=== PATIENT | male | born 1965 | race Caucasian/White ===

== ENCOUNTER 2016-11-20 17:45 | Inpatient (IN) | payer OTHER ==
[~2016-11-20] VITALS: Ht 177.8 cm; Wt 115.8 kg
[~2016-11-20 17:45] MED LIST: AUGMENTIN 875875 MG PO; IBU800 MG PO; MOTRIN800 MG PO; NEURONTIN100 MG PO; NEXIUM20 MG PO; WELLBUTRIN SR150 MG PO
[2016-11-20 17:56] VITALS: BP 125/80
[2016-11-20] MEDS ORDERED: DEXILANT60 M1 PO (17:57)
[2016-11-20] MEDS ORDERED: VITAMIN D5000 UNI1 PO (17:57)
[2016-11-20 18:27] LABS: BASO % 0.2 % (0.0-1.0); EOS # 0.1 10*3/uL (0.0-0.4); EOS % 0.3 % (1.0-4.0); HEMATOCRIT 45.3 % (42.0-52.0); IG # 0.1 10*3/uL (0.0-0.1); LYMPH # 1.7 10*3/uL (1.3-4.4); LYMPH % 8.6 % (27.0-41.0); MEAN CELL VOLUME 87.3 fl (80.0-94.0); MEAN CORPUSCULAR HGB 30.8 pg (27.0-31.0); MEAN CORPUSCULAR HGB CONC 35.3 g/dl (33.0-37.0); MEAN PLATELET VOLUME 9.1 fl (9.6-12.3); MONO # 1.4 10*3/uL (0.1-1.0); MONO % 7.2 % (3.0-9.0); PLATELET COUNT AUTOMATED 350 10*3/uL (130-400); RED BLOOD COUNT 5.19 10*6/uL (4.50-5.90); RED CELL DISTRI WIDTH 12.6 % (0-14.5); WHITE BLOOD COUNT 19.2 10*3/uL (4.8-10.8)
[2016-11-20 18:39] LABS: POTASSIUM 3.8 mmol/L (3.5-5.1)
[2016-11-20 21:20] VITALS: BP 157/92
[2016-11-21] VITALS: BP 111/48
[2016-11-21] MEDS ORDERED: LIVALO2 M1 PO (02:56)
[2016-11-21 06:26] LABS: BASO % 0.4 % (0.0-1.0); EOS # 0.2 10*3/uL (0.0-0.4); EOS % 2.1 % (1.0-4.0); HEMATOCRIT 41.2 % (42.0-52.0); HEMOGLOBIN 14.2 g/dl (14.0-18.0); IG # 0.1 10*3/uL (0.0-0.1); LYMPH # 2.6 10*3/uL (1.3-4.4); LYMPH % 30.6 % (27.0-41.0); MEAN CORPUSCULAR HGB 31.1 pg (27.0-31.0); MEAN CORPUSCULAR HGB CONC 34.5 g/dl (33.0-37.0); MEAN PLATELET VOLUME 9.1 fl (9.6-12.3); MONO % 11.8 % (3.0-9.0); NEUT # 4.7 10*3/uL (2.3-7.9); NEUT % 54.4 % (47.0-73.0); PLATELET COUNT AUTOMATED 300 10*3/uL (130-400); RED BLOOD COUNT 4.56 10*6/uL (4.50-5.90); RED CELL DISTRI WIDTH 13.1 % (0-14.5); WHITE BLOOD COUNT 8.5 10*3/uL (4.8-10.8)
[2016-11-21 06:32] LABS: MEAN CELL VOLUME 90.4 fl (80.0-94.0)
[2016-11-21 06:51] LABS: INTERNATIONAL NORM RATIO 0.9 (2.0-3.5)
[2016-11-21 07:02] LABS: ALBUMIN 3.4 gm/dl (3.1-4.5); BILIRUBIN, TOTAL 0.5 mg/dl (0.2-1.0); BUN 19 mg/dl (7-24); CARBON DIOXIDE 29 mmol/L (21-32); CHLORIDE 106 mmol/L (98-107); CHOLESTEROL 252 mg/dL (<200); EST GLOM FILT AFRICAN AMERICAN > 60 ml/min; GLUCOSE 102 mg/dL (65-99); MAGNESIUM 2.4 mg/dL (1.5-2.1); PHOSPHOROUS 3.9 mg/dL (2.5-4.9); POTASSIUM 4.3 mmol/L (3.5-5.1); SGOT/AST 21 IU/L (3-35); SGPT/ALT 46 U/L (12-78); SODIUM 142 mmol/L (136-145); TOTAL PROTEIN 6.7 gm/dL (6.4-8.2); TRIGLYCERIDES 180 mg/dl (<150); VLDL CHOLESTEROL 36 mg/dL (6-40)
[2016-11-21 07:09] LABS: ALKALINE PHOSPHATASE 128 U/L (45-117); HDL CHOLESTEROL 40 mg/dl (40-60); LDL CHOLESTEROL 176 mg/dL (9-159)
[2016-11-21 07:48] LABS: FOLIC ACID 18.03 ng/mL (>5.38); VITAMIN D, 25-HYDROXY 44.2 ng/mL (30-100)
[2016-11-21 08:00] VITALS: BP 122/76
[2016-11-21 12:00] VITALS: BP 130/74
[2016-11-21 16:00] VITALS: BP 154/78
[2016-11-21 20:00] VITALS: BP 138/74
[2016-11-22] VITALS: BP 126/54
[2016-11-22 06:52] LABS: BASO % 0.3 % (0.0-1.0); EOS # 0.2 10*3/uL (0.0-0.4); EOS % 2.5 % (1.0-4.0); HEMATOCRIT 41.7 % (42.0-52.0); HEMOGLOBIN 14.4 g/dl (14.0-18.0); LYMPH # 2.2 10*3/uL (1.3-4.4); LYMPH % 32.1 % (27.0-41.0); MEAN CELL VOLUME 90.1 fl (80.0-94.0); MEAN CORPUSCULAR HGB 31.1 pg (27.0-31.0); MEAN CORPUSCULAR HGB CONC 34.5 g/dl (33.0-37.0); MEAN PLATELET VOLUME 9.3 fl (9.6-12.3); MONO # 0.6 10*3/uL (0.1-1.0); MONO % 9.3 % (3.0-9.0); NEUT # 3.8 10*3/uL (2.3-7.9); NEUT % 55.2 % (47.0-73.0); PLATELET COUNT AUTOMATED 332 10*3/uL (130-400); RED BLOOD COUNT 4.63 10*6/uL (4.50-5.90); RED CELL DISTRI WIDTH 13.2 % (0-14.5); WHITE BLOOD COUNT 6.8 10*3/uL (4.8-10.8)
[2016-11-22 07:21] LABS: INTERNATIONAL NORM RATIO 0.9 (2.0-3.5); PROTHROMBIN TIME 9.6 SECONDS (9.0-12.4)
[2016-11-22 07:29] LABS: BUN 18 mg/dl (7-24); CARBON DIOXIDE 26 mmol/L (21-32); CHLORIDE 107 mmol/L (98-107); EST GLOM FILT AFRICAN AMERICAN > 60 ml/min; GLUCOSE 112 mg/dL (65-99); POTASSIUM 4.2 mmol/L (3.5-5.1); SODIUM 141 mmol/L (136-145)
[2016-11-22 08:00] VITALS: BP 136/78
[2016-11-22 12:00] VITALS: BP 128/68
[2016-11-22] MEDS ORDERED: ASPIRIN ADULT L81 M2 PO (16:07)
[2016-11-22] MEDS ORDERED: CLEOCIN HCL150 MG PO (16:07)
== END 2016-11-22 16:50 | disposition home or self-care (01) | DRG 157 ==
LOC: ED 17:45 → 5E 20:01 → EDHOLD 20:01 → 5E 20:06
PROVIDERS: Emergency Medicine; Internal Medicine; Internal Medicine Hospice and Palliative Medicine
DX: K04.7 Periapical abscess without sinus (principal); N17.0 Acute kidney failure with tubular necrosis; K04.01 Reversible pulpitis; D72.829 Elevated white blood cell count, unspecified; R73.9 Hyperglycemia, unspecified; R73.03 Prediabetes; E66.09 Other obesity due to excess calories; E78.5 Hyperlipidemia, unspecified; K21.9 Gastro-esophageal reflux disease without esophagitis; F32.9 Major depressive disorder, single episode, unspecified; M19.90 Unspecified osteoarthritis, unspecified site; E55.9 Vitamin D deficiency, unspecified; Z82.49 Family history of ischemic heart disease and other diseases of the circulatory system; Z83.3 Family history of diabetes mellitus; Z90.49 Acquired absence of other specified parts of digestive tract; Z88.8 Allergy status to other drugs, medicaments and biological substances; Z79.1 Long term (current) use of non-steroidal anti-inflammatories (NSAID); Z79.899 Other long term (current) drug therapy; Z68.34 Body mass index [BMI] 34.0-34.9, adult

== ENCOUNTER 2017-03-04 09:13 | Inpatient (IN) | payer OTHER ==
[~2017-03-04] VITALS: Ht 177.8 cm; Wt 132.1 kg
[~2017-03-04 09:13] MED LIST changes: +ASPIRIN ADULT L81 M2 PO; +CLEOCIN HCL150 MG PO; +DEXILANT60 M1 PO; +LIVALO2 M1 PO; +VITAMIN D5000 UNI1 PO
[2017-03-04 09:25] VITALS: BP 141/84
[2017-03-04 09:30] LABS: BASO # 0.1 10*3/uL (0.0-0.1); BASO % 0.6 % (0.0-1.0); EOS # 0.3 10*3/uL (0.0-0.4); EOS % 3.3 % (1.0-4.0); HEMOGLOBIN 14.2 g/dl (14.0-18.0); LYMPH # 2.6 10*3/uL (1.3-4.4); LYMPH % 29.4 % (27.0-41.0); MEAN CELL VOLUME 91.9 fl (80.0-94.0); MEAN CORPUSCULAR HGB 31.8 pg (27.0-31.0); MEAN CORPUSCULAR HGB CONC 34.6 g/dl (33.0-37.0); MEAN PLATELET VOLUME 8.9 fl (9.6-12.3); MONO # 0.8 10*3/uL (0.1-1.0); MONO % 9.2 % (3.0-9.0); NEUT % 56.4 % (47.0-73.0); PLATELET COUNT AUTOMATED 295 10*3/uL (130-400); RED BLOOD COUNT 4.46 10*6/uL (4.50-5.90); WHITE BLOOD COUNT 8.9 10*3/uL (4.8-10.8)
[2017-03-04 09:36] VITALS: BP 141/84
[2017-03-04 09:38] LABS: ACT PARTIAL THROMBO TIME 22.3 SECONDS (20.8-31.5); INTERNATIONAL NORM RATIO 0.9 (2.0-3.5)
[2017-03-04 09:50] LABS: ALBUMIN 3.5 gm/dl (3.1-4.5); ALKALINE PHOSPHATASE 108 U/L (45-117); BUN 13 mg/dl (7-24); CHLORIDE 107 mmol/L (98-107); POTASSIUM 4.2 mmol/L (3.5-5.1); SGOT/AST 19 IU/L (3-35); SGPT/ALT 44 U/L (12-78); SODIUM 140 mmol/L (136-145); TOTAL PROTEIN 6.5 gm/dL (6.4-8.2)
[2017-03-04 09:51] LABS: TROPONIN I 0.023 ng/ml (<0.045)
[2017-03-04 10:15] VITALS: BP 147/94
[2017-03-04 10:55] VITALS: BP 151/90
[2017-03-04] MEDS ORDERED: VALSARTAN160 MG PO (11:13)
== END 2017-03-04 15:53 | disposition home or self-care (01) | DRG 392 ==
LOC: ED 09:13 → EDHOLD 10:09 → 5E 10:09
PROVIDERS: Emergency Medicine; ADMIT Internal Medicine
DX: K21.9 Gastro-esophageal reflux disease without esophagitis (principal); Z68.41 Body mass index [BMI] 40.0-44.9, adult; I10 Essential (primary) hypertension; E11.9 Type 2 diabetes mellitus without complications; E78.00 Pure hypercholesterolemia, unspecified; M19.90 Unspecified osteoarthritis, unspecified site; E55.9 Vitamin D deficiency, unspecified; K44.9 Diaphragmatic hernia without obstruction or gangrene; M79.7 Fibromyalgia; E66.09 Other obesity due to excess calories; E78.2 Mixed hyperlipidemia; F41.9 Anxiety disorder, unspecified; Z88.8 Allergy status to other drugs, medicaments and biological substances; Z82.49 Family history of ischemic heart disease and other diseases of the circulatory system; Z83.3 Family history of diabetes mellitus; Z90.89 Acquired absence of other organs; Z84.1 Family history of disorders of kidney and ureter; Z79.899 Other long term (current) drug therapy; Z79.82 Long term (current) use of aspirin

== ENCOUNTER 2017-05-07 17:24 | Inpatient (IN) | payer OTHER ==
[2017-05-07] VITALS (9 sets, daily range): BP systolic 97–162; BP diastolic 73–105
[~2017-05-07] VITALS: Ht 152.4 cm; Wt 118.4 kg
--- NOTE | ~2017-05-07 | EKG ---
[place], [place] ELECTROCARDIOGRAM REPORT NAME: SOL DONALD UNIT #: [id number] ROOM: 516 DOCTOR: CELIA EUCEDA,GWYN BIRTHDATE: [birth year] DOS: 05/07/2017 TIME: 2007 hours. IMPRESSION: 1. Sinus rhythm. 2. Normal QT interval. 3. No ischemic changes. GWYN YANG MD CM:EKGRPT:ELECTROCARDIOGRAM REPORT [id number] GWYN YANG MD
--- NOTE | ~2017-05-07 | EKG ---
[place], [place] ELECTROCARDIOGRAM REPORT NAME: SOL DONALD UNIT #: [id number] ROOM: 516 DOCTOR: GWYN YANG MD BIRTHDATE: [birth year] DOS: 05/07/2017 TIME: 1729. IMPRESSION: 1. Sinus rhythm. 2. Nonspecific ST-T changes. 3. Normal QT interval. GWYN YANG MD CM:EKGRPT:ELECTROCARDIOGRAM REPORT [id number] GWYN YANG MD
[~2017-05-07 17:24] MED LIST changes: +VALSARTAN160 MG PO
[2017-05-07 17:52] LABS: HEMATOCRIT 48.3 % (42.0-52.0); HEMOGLOBIN 16.9 g/dl (14.0-18.0); MEAN CELL VOLUME 89.6 fl (80.0-94.0); MEAN CORPUSCULAR HGB 31.4 pg (27.0-31.0); PLATELET COUNT AUTOMATED 346 10*3/uL (130-400); RED BLOOD COUNT 5.39 10*6/uL (4.50-5.90); RED CELL DISTRI WIDTH 12.4 % (0-14.5); WHITE BLOOD COUNT 18.2 10*3/uL (4.8-10.8)
--- NOTE | 2017-05-07 17:58 | NUR ---
CHEST PAIN AFTER FIRST NITRO FROM 9 TO 7 CHEST PAIN AFTER 2NXD NITRO FROM 7 TO 5
[2017-05-07 18:01] LABS: ACT PARTIAL THROMBO TIME 21.6 SECONDS (20.8-31.5); INTERNATIONAL NORM RATIO 0.9 (2.0-3.5)
--- NOTE | 2017-05-07 18:09 | NUR ---
CHEST PAIN 4 BUT UNABLE TO TELL IF ITS THAT NOW OR STOMACH PAIN
[2017-05-07 18:10] LABS: ATYPICAL LYMPHS 2 % (0-0); TOTAL CELLS COUNTED 100 #CELLS
[2017-05-07 18:11] LABS: ALKALINE PHOSPHATASE 152 U/L (45-117); BUN 18 mg/dl (7-24); CHLORIDE 108 mmol/L (98-107); CREATININE 1.07 mg/dL (0.70-1.30); PLATELET SUFFICIENCY NORMAL (NORMAL); POTASSIUM 4.1 mmol/L (3.5-5.1); SGOT/AST 23 IU/L (3-35); SGPT/ALT 50 U/L (12-78); SODIUM 142 mmol/L (136-145); TOTAL PROTEIN 7.7 gm/dL (6.4-8.2); TROPONIN I 0.021 ng/ml (<0.045)
--- NOTE | 2017-05-07 19:43 | NUR ---
PATIENT GIVEN A PILLOW AND LIGHTS DIMMED. PATIENT DENIES ANY PAIN OR COMPLAINTS AT THIS TIME. PATIENT RESTING COMFORTABLY IN BED. CALL LIGHT WITHIN REACH. VSS. WILL CONTINUE TO MONITOR.
--- NOTE | 2017-05-07 21:30 | NUR ---
NURSE UNABLE TO TAKE REPORT AT THIS TIME. STAFF NURSE WILL CALL ER WHEN READY.
--- NOTE | 2017-05-07 22:15 | NUR ---
A 51, admitted to , under the services of DARIO Montalvo DO with a diagnosis of CHEST PAIN. Chief complaint is CHEST PAIN. Patient arrived via bed from ER. Monitor applied. Initial assessment completed. Vital signs taken and recorded. DARIO MONTALVO DO notified of admission to the unit. Orders received. See assessment for past medical history, medications and allergies. Patient and/or family oriented to unit. [facility] visitation policy reviewed. Clothing/patient valuable form completed. RENAE HERNANDEZ
--- NOTE | 2017-05-07 22:20 | NUR ---
PATIENT MEDICATED WITH PRN TYLENOL ORDERD FOR C/O A HEADACHE.
[2017-05-08] VITALS: BP 116/62
--- NOTE | 2017-05-08 01:31 | NUR ---
PATIENT SLEEPING ON RIGHT SIDE. RESPIRATIONS EASY/REG. NO SXS OF DISTRESS. FLUIDS MAINTAINED PER ORDER. CALL LIGHT IS IN REACH. WILL MONITOR.
--- NOTE | 2017-05-08 02:25 | NUR ---
MED REC UPDATED VIA LIST FROM PATIENT
--- NOTE | 2017-05-08 04:46 | NUR ---
PATIENT RESTING IN BED ON LEFT SIDE. RESPIRATIONS EASY/REG. FLUIDS MAINTAINED PER ORDER. CALL LIGHT IS IN REACH.
[2017-05-08 08:00] VITALS: BP 122/76
[2017-05-08 08:20] LABS: BASO % 0.1 % (0.0-1.0); EOS # 0.1 10*3/uL (0.0-0.4); EOS % 1.5 % (1.0-4.0); HEMATOCRIT 42.4 % (42.0-52.0); LYMPH # 1.6 10*3/uL (1.3-4.4); LYMPH % 19.4 % (27.0-41.0); MEAN CELL VOLUME 92.2 fl (80.0-94.0); MEAN CORPUSCULAR HGB CONC 34.7 g/dl (33.0-37.0); MEAN PLATELET VOLUME 9.1 fl (9.6-12.3); MONO # 0.8 10*3/uL (0.1-1.0); MONO % 9.2 % (3.0-9.0); NEUT # 5.7 10*3/uL (2.3-7.9); NEUT % 69.6 % (47.0-73.0); PLATELET COUNT AUTOMATED 285 10*3/uL (130-400); RED CELL DISTRI WIDTH 12.6 % (0-14.5); WHITE BLOOD COUNT 8.2 10*3/uL (4.8-10.8)
[2017-05-08 08:23] LABS: HEMOGLOBIN 14.7 g/dl (14.0-18.0)
--- NOTE | 2017-05-08 08:30 | NUR ---
Flask Pusher in to talk to patient. Patient states lives at home with his and children. There are 12 steps in the home. Physician: Dr. Cole Yu Pharmacy: [facility] Home health services: none Patient's level of ADLs: INDEPENDENT Patient has working utilities: yes DME: none Follow-up physician's appointment after d/c: will be made by the hospitalist nurse director upon discharge Does patient want to access PORTAL?: no Discharge plan discussed with patient. He lives at home with his and children. He is independent in his ADLs and ambulation. Denies any home needs at this time. When medically stable he will be discharged to home. ABRAHAM RAMESH
[2017-05-08 08:33] LABS: ALBUMIN 3.1 gm/dl (3.1-4.5); BUN 17 mg/dl (7-24); CHLORIDE 107 mmol/L (98-107); CHOLESTEROL 168 mg/dL (<200); CREATININE 0.99 mg/dL (0.70-1.30); FREE T4 0.71 ng/dl (0.76-1.46); HDL CHOLESTEROL 34 mg/dl (40-60); LDL CHOLESTEROL 103 mg/dL (9-159); PHOSPHOROUS 2.5 mg/dL (2.5-4.9); POTASSIUM 4.2 mmol/L (3.5-5.1); SGOT/AST 18 IU/L (3-35); SGPT/ALT 41 U/L (12-78); SODIUM 139 mmol/L (136-145); TOTAL PROTEIN 6.4 gm/dL (6.4-8.2); TRIGLYCERIDES 155 mg/dl (<150); VLDL CHOLESTEROL 31 mg/dL (6-40)
[2017-05-08 08:39] LABS: ALKALINE PHOSPHATASE 117 U/L (45-117); THYROID STIM HORMONE (HS) 0.994 uIU/ml (0.358-4.75)
[2017-05-08 09:43] LABS: VITAMIN D, 25-HYDROXY 51.6 ng/mL (30-100)
[2017-05-08 12:00] VITALS: BP 139/76
== END 2017-05-08 15:27 | disposition home or self-care (01) | DRG 392 ==
LOC: ED 17:24 → EDHOLD 21:06 → 5E 21:06
PROVIDERS: Emergency Medicine; Family Medicine; ADMIT Internal Medicine
DX: K52.9 Noninfective gastroenteritis and colitis, unspecified (principal); E87.2 Acidosis; E66.01 Morbid (severe) obesity due to excess calories; Z68.43 Body mass index [BMI] 50.0-59.9, adult; D72.829 Elevated white blood cell count, unspecified; K21.9 Gastro-esophageal reflux disease without esophagitis; M79.7 Fibromyalgia; F41.1 Generalized anxiety disorder; R07.9 Chest pain, unspecified; E78.5 Hyperlipidemia, unspecified; M19.90 Unspecified osteoarthritis, unspecified site; R74.8 Abnormal levels of other serum enzymes; I10 Essential (primary) hypertension; F33.42 Major depressive disorder, recurrent, in full remission; Z88.6 Allergy status to analgesic agent; Z79.82 Long term (current) use of aspirin; Z79.899 Other long term (current) drug therapy; Z83.3 Family history of diabetes mellitus; Z82.49 Family history of ischemic heart disease and other diseases of the circulatory system

== ENCOUNTER 2019-12-30 10:51 | Emergency (ER) | payer OTHER ==
[2019-12-30 11:03] VITALS: BP 163/109
[2019-12-30] MEDS ORDERED: METHOCARBAMOL500 M1 PO (13:25)
[2019-12-30] MEDS ORDERED: MEDROL DOSEPAK4 MG PO (13:25)
[2019-12-30] MEDS ORDERED: NAPROSYN500 MG PO (13:25)
== END 2019-12-30 13:32 | disposition home or self-care (01) ==
LOC: ED 10:51
DX: S39.012A Strain of muscle, fascia and tendon of lower back, initial encounter (principal); Z88.8 Allergy status to other drugs, medicaments and biological substances; Z79.82 Long term (current) use of aspirin; Z79.899 Other long term (current) drug therapy; X58.XXXA Exposure to other specified factors, initial encounter; Y93.89 Activity, other specified; Y92.89 Other specified places as the place of occurrence of the external cause; Y99.8 Other external cause status

== ENCOUNTER 2020-06-30 11:40 | Emergency (ER) | payer OTHER ==
[~2020-06-30] VITALS: Wt 113.4 kg
[~2020-06-30 11:40] MED LIST changes: +MEDROL DOSEPAK4 MG PO; +METHOCARBAMOL500 M1 PO; +NAPROSYN500 MG PO
[2020-06-30 11:48] VITALS: BP 172/91
[2020-06-30] MEDS ORDERED: IBUPROFEN600 MG PO (16:40)
[2020-06-30] MEDS ORDERED: ROBAXIN-750750 MG PO (16:43)
== END 2020-06-30 16:47 | disposition home or self-care (01) ==
LOC: ED 11:40
DX: S13.9XXA Sprain of joints and ligaments of unspecified parts of neck, initial encounter (principal); S43.401A Unspecified sprain of right shoulder joint, initial encounter; Z79.82 Long term (current) use of aspirin; Z88.8 Allergy status to other drugs, medicaments and biological substances; Z79.899 Other long term (current) drug therapy; Z98.890 Other specified postprocedural states; Z90.49 Acquired absence of other specified parts of digestive tract; W00.2XXA Other fall from one level to another due to ice and snow, initial encounter; Y93.89 Activity, other specified; Y92.89 Other specified places as the place of occurrence of the external cause; Y99.8 Other external cause status